=== PATIENT | male | born 1960 | race Caucasian/White ===

== ENCOUNTER 2018-10-20 08:21 | Day surgery (SDC) | payer BC ==
[~2018-10-20] VITALS: Ht 177.8 cm; Wt 98.5 kg
[2018-10-20] VITALS (16 sets, daily range): BP systolic 127–157; BP diastolic 74–96; PULSE 72–85; RESP 13–18; Ht 177.8 cm; Wt 98.5 kg
[~2018-10-20 08:21] MED LIST: ASPI81TA52 PO; ATOR20TA38 PO
[2018-10-20] MEDS ORDERED: MITOMYCIN 40 MG VIAL IS ONE (10:00)
[2018-10-20] MEDS ORDERED: LACTATED RINGER'S 1,000 ML IV SCH (10:00)
[2018-10-20] MEDS ORDERED: PROPOFOL 20 ML ONE (10:39)
[2018-10-20] MEDS ORDERED: CEFAZOLIN 1 GM INJ ONE (10:39)
[2018-10-20] MEDS ORDERED: MIDAZOLAM 1 MG/ML 2 ML INJ ONE (10:39)
[2018-10-20] MEDS ORDERED: ROCURONIUM 50 MG INJ ONE (10:39)
[2018-10-20] MEDS ORDERED: FENTAnyl 50 MCG/ML VIAL ONE (10:39)
[2018-10-20] MEDS ORDERED: LABETALOL HCL 20MG INJ IV PRN (11:00)
[2018-10-20] MEDS ORDERED: FENTAnyl 50 MCG/ML VIAL IV PRN ×3 (11:00)
[2018-10-20] MEDS ORDERED: EPHEDrine 25 MG/5 ML SYG IV PRN (11:00)
[2018-10-20] MEDS ORDERED: HYDROmorphONE 1 MG/5 ML IV SYRINGE IV PRN ×3 (11:00)
[2018-10-20] MEDS ORDERED: ONDANSETRON 4 MG INJ IV PRN (11:00)
[2018-10-20] MEDS ORDERED: hydrALAzine 20 MG INJ IV PRN (11:00)
[2018-10-20] MEDS ORDERED: OXYCODONE/ACETAMINOPHEN (5/325) TAB PO PRN (11:00)
[2018-10-20] MEDS ORDERED: METOCLOPRAMIDE 10 MG INJ IV PRN (11:00)
[2018-10-20] MEDS ORDERED: METOCLOPRAMIDE 10 MG INJ ONE (11:33)
[2018-10-20] MEDS ORDERED: ONDANSETRON 4 MG INJ ONE (11:33)
[2018-10-20] MEDS ORDERED: DEXAMETHASONE 4 MG/ML 5 ML INJ ONE (11:33)
== END 2018-10-20 13:54 | disposition home or self-care (01) ==
LOC: SUR 08:21 → SDS 08:21 → SUR 13:54
PROVIDERS: ATTEND Urology
DX: C67.9 Malignant neoplasm of bladder, unspecified (principal); I10 Essential (primary) hypertension
CPT/HCPCS: 52224; 88309; J0690; J1100; J1170; J2250; J2405; J2765; J3010; J9280; Z7512; Z7610; 88321